=== PATIENT | male | born 1965 | race Caucasian/White ===

== ENCOUNTER 2016-11-17 14:48 | Inpatient (IN) | payer OTHER ==
[~2016-11-17] VITALS: Ht 177.8 cm; Wt 81.8 kg
[~2016-11-17 14:48] MED LIST: ATARAX,VISTARIL25 MG PO; CLONIDINE HCL0.1 MG PO; DURAGESIC25 MCG TD; FLEXERIL5 MG PO; FLOMAX0.4 MG PO; HYDROCODON-ACE1 EAC7 PO; IBUPROFEN800 MG PO; MUCINEX1200 MG PO; NAPROSYN500 MG PO; NORCO 5/3251 TABLET PO; PERCOCET 5/31 TABLET PO; PERCOCET 7.51 TABLET PO; VALIUM5 MG PO; WELLBUTRIN SR150 MG PO; ZOFRAN ODT4 MG PO; ZOLOFT100 MG PO
[2016-11-17 15:32] LABS: CHLORIDE 105 mEq/L (99-109); POTASSIUM 3.8 mEq/L (3.7-5.4); SODIUM 139 mEq/L (136-147)
[2016-11-17 15:33] LABS: GLUCOSE 112 mg/dL (70-99); HEMATOCRIT 41.6 % (38.0-50.0); MCH 21.2 PG (29.0-34.0); MCHC 30.8 G/DL (30.0-36.0); MEAN PLAT.VOLUME 10.2 uM^3 (9.0-12.4); PLATELET COUNT 309 K/uL (156-360); RBC DIS.WIDTH-CV 14.4 % (11.8-14.6); RED BLOOD COUNT 6.03 M/uL (4.00-5.50); WHITE BLOOD COUNT 8.9 K/uL (4.1-10.2)
[2016-11-17 15:35] LABS: ANION GAP 10 MEQ/L (2-14)
[2016-11-17 15:37] LABS: GFR ESTIMATE (CALCULATED) > 59 mL/min/; SERUM ETHYL ALCOHOL < 10 mg/dL
[2016-11-17 15:38] LABS: UREA NITROGEN (BUN) 19 mg/dL (9-23)
[2016-11-17 16:37] LABS: AMPHETAMINE NEGATIVE (500 ng/mL); BARBITURATES NEGATIVE (200 ng/mL); BENZODIAZEPINES NEGATIVE (150 ng/mL); COCAINE PRESUMPTIVE POSITIVE (150 ng/mL); METHADONE NEGATIVE (200 ng/mL); METHAMPHETAMINE NEGATIVE (500 ng/mL); OPIATES (MORPHINE) PRESUMPTIVE POSITIVE (100 ng/mL); OXYCODONE NEGATIVE (100 ng/mL); PHENCYCLIDINE NEGATIVE (25 ng/mL); PROPOXYPHENE NEGATIVE (300 ng/mL); THC CANNABINOIDS NEGATIVE (50 ng/mL); TRICYCLIC ANTIDEPRESSANTS NEGATIVE (300 ng/mL)
[2016-11-17 16:38] LABS: ADD MEDTOX COMMENT Y; INTERNAL CONTROLS VALID? YES
[2016-11-17 19:18] VITALS: BP 156/84
[2016-11-17 19:19] VITALS: BP 154/86
[2016-11-18 07:55] VITALS: BP 128/68
[2016-11-18 15:44] VITALS: BP 125/79
[2016-11-19 08:01] VITALS: BP 132/90
[2016-11-19] MEDS ORDERED: HYDROXYZINE PAM50 MG PO (10:22)
[2016-11-19] MEDS ORDERED: IBUPROFEN800 MG PO (10:22)
[2016-11-19] MEDS ORDERED: BUPROPION HCL150 M2 PO (10:22)
== END 2016-11-19 11:08 | disposition home or self-care (01) | DRG 881 ==
LOC: EME 14:48 → EDOF 18:18 → 1WEST 19:06
PROC: HZ2ZZZZ Detoxification Services for Substance Abuse Treatment (ICD-10-PCS; principal; 2016-11-17)
DX: F43.21 Adjustment disorder with depressed mood (principal); F11.23 Opioid dependence with withdrawal; R45.851 Suicidal ideations; F14.10 Cocaine abuse, uncomplicated; F60.9 Personality disorder, unspecified; G89.21 Chronic pain due to trauma; F17.200 Nicotine dependence, unspecified, uncomplicated
CPT/HCPCS: 80048; 84999; 85027; 90839; 99281; 99285; G0480; J0572; J0574; Q0177